=== PATIENT | male | born 1955 | race American Indian/Alaskan Native ===

== ENCOUNTER 2018-05-18 02:31 | Emergency (ER) | payer OTHER ==
[2018-05-18 03:43] LABS: Basophils # (Auto) 0.1 K/mm3 (0.0-0.1); Hematocrit 36.5 % (35.5-45.6); Hemoglobin 11.8 gm/dl (11.8-15.2); Lymphocytes % (Auto) 18.3 % (13.4-35.0); Mean Corpuscular HGB Conc 32 % (32-34); Mean Corpuscular Hemoglobin 28 pg (28-32); Mean Corpuscular Volume 86 fl (84-94); Monocytes # (Auto) 0.4 K/mm3 (0.0-0.8); Monocytes % (Auto) 7.4 % (0.0-7.3); Platelet Count 236 K/mm3 (140-440); Red Blood Count 4.23 M/mm3 (3.65-5.03); Red Cell Distribution Width 13.9 % (13.2-15.2)
[2018-05-18] MEDS ORDERED: AFRIN ONE (04:37)
[2018-05-18 04:57] VITALS: BP 110/82
[2018-05-18 05:06] LABS: BUN/Creatinine Ratio 40; Blood Urea Nitrogen 44 mg/dL (9-20); Calcium 9.1 mg/dL (8.4-10.2); Hemolysis Index 11
[2018-05-18] MEDS ORDERED: AFRIN NS ONE (06:04)
--- NOTE | 2018-05-18 06:18 | Emergency Department Report ---
ED ENT HPI - General Chief complaint: Nosebleed Stated complaint: NOSE BLEED Time Seen by Provider: 05/18/18 06:17 Source: patient Mode of arrival: Ambulatory Limitations: No Limitations - History of Present Illness Initial comments: Patient c/o left sided nose bleed which started yesterday on and off. He denies any nose trauma. MD complaint: epistaxis -: Sudden, days(s) (1) Location: nose Severity: moderate Severity scale (0 -10): 4 Consistency: intermittent Improves with: pressure, other medication (Afrin nasal spray) Worsens with: none - Related Data Allergies Allergy/AdvReac Type Severity Reaction Status Date / Time No Known Allergies Allergy Verified 05/18/18 04:36 ED Dental HPI - General Chief complaint: Nosebleed Stated complaint: NOSE BLEED Time Seen by Provider: 05/18/18 06:17 Source: patient Mode of arrival: Ambulatory Limitations: No Limitations - Related Data Allergies Allergy/AdvReac Type Severity Reaction Status Date / Time No Known Allergies Allergy Verified 05/18/18 04:36 ED Review of Systems ROS: Stated complaint: NOSE BLEED Other details as noted in HPI Comment: All other systems reviewed and negative Constitutional: denies: chills, fever Eyes: denies: eye pain ENT: epistaxis Respiratory: no symptoms reported Cardiovascular: denies: chest pain, palpitations, dyspnea on exertion Endocrine: no symptoms reported Gastrointestinal: denies: abdominal pain, nausea, vomiting, diarrhea Genitourinary: denies: urgency, dysuria Musculoskeletal: denies: back pain, joint swelling Skin: denies: rash, lesions Neurological: denies: headache, weakness, numbness, paresthesias Psychiatric: denies: anxiety, depression Hematological/Lymphatic: denies: easy bleeding, easy bruising ED Past Medical Hx - Past Medical History Hx Asthma: Yes - Surgical History Past Surgical History?: No - Social History Smoking Status: Current Every Day Smoker Substance Use Type: None ED Physical Exam - General Limitations: No Limitations General appearance: alert, in no apparent distress - Head Head exam: Present: atraumatic, normocephalic, normal inspection - Eye Eye exam: Present: normal appearance, PERRL, EOMI Pupils: Present: normal accommodation - ENT ENT exam: Present: normal orophraynx, mucous membranes moist, other (Left nostril oozing bright red blood.) - Neck Neck exam: Present: normal inspection, full ROM. Absent: tenderness - Respiratory Respiratory exam: Present: normal lung sounds bilaterally. Absent: respiratory distress, wheezes, rales, rhonchi, stridor - Cardiovascular Cardiovascular Exam: Present: regular rate, normal rhythm, normal heart sounds - GI/Abdominal GI/Abdominal exam: Present: soft, normal bowel sounds. Absent: distended, tenderness, guarding, rebound, rigid - Extremities Exam Extremities exam: Present: normal inspection, full ROM, normal capillary refill. Absent: tenderness - Back Exam Back exam: Present: normal inspection, full ROM. Absent: tenderness - Neurological Exam Neurological exam: Present: alert, oriented X3, CN II-XII intact - Psychiatric Psychiatric exam: Present: normal affect, normal mood - Skin Skin exam: Present: warm, dry, intact, normal color. Absent: rash ED Course Vital Signs 05/18/18 05/18/18 03:21 04:56 Temperature 98.4 F Pulse Rate 120 H 94 H Respiratory 22 16 Rate Blood Pressure 137/96 Blood Pressure 110/82 [Left] O2 Sat by Pulse 100 96 Oximetry - Reevaluation(s) Reevaluation #1: 05/18/18 08:00 Patient does not want to stay in the ED anymore, he wants to be discharged because his ride is waiting for him outside to taking to [facility]. He said he is going to [place] immediately for further medical evaluation and consultation with an ENT surgeon. I appreciated the patient to stay to get his IV fluid and more evaluation but he refused saying if I done discharge him, he will leave AGAINST MEDICAL ADVICE. There is no ENT surgeon personal protection specialist today at [facility]. - Procedure Description Procedures done: Patient left nostril was sprayed with Afrin nasal spray. Afterwards, left nostril was packed with a Rhino Rocket. Bleeding was immediately controlled. No complication. Patient tolerated the procedure well. ED Medical Decision Making - Lab Data Result diagrams: 05/18/18 03:31 05/18/18 03:31 - Medical Decision Making Epistaxis. Critical care attestation.: If time is entered above; I have spent that time in minutes in the direct care of this critically ill patient, excluding procedure time. ED Disposition Clinical Impression: Epistaxis, Mild dehydration Disposition: DC-01 TO HOME OR SELFCARE Is pt being admited?: No Does the pt Need Aspirin: No Condition: Stable Instructions: Epistaxis (ED) Additional Instructions: Please follow up with an ENT surgeon Dr Goff today for further evaluation and management. Return to the emergency room if your condition worsens. Referrals: PRIMARY CARE, [Primary Care Provider] - 3-5 Days ANGIE GOFF MD [Staff Physician] - 3-5 Days Time of Disposition: 08:12
[2018-05-18] MEDS ORDERED: NACL 0.9% 1000 ML 1,000 ML IV ONE (06:49)
[2018-05-18 07:12] LABS: INR 0.95 (0.87-1.13)
[2018-05-18 07:13] LABS: Partial Thromboplastin Time 25.8 Sec. (24.2-36.6)
[2018-05-18 07:16] LABS: Alanine Aminotransferase 27 units/L (7-56)
[2018-05-18 07:31] LABS: Bilirubin,Direct < 0.2 mg/dL (0-0.2)
== END 2018-05-18 08:20 | disposition home or self-care (01) ==
LOC: ED 02:31
DX: R04.0 Epistaxis (principal); E86.0 Dehydration; J45.909 Unspecified asthma, uncomplicated; F17.200 Nicotine dependence, unspecified, uncomplicated
CPT/HCPCS: 36415; 80048; 80074; 85025; 85610; 85730

== ENCOUNTER 2019-08-24 22:32 | Inpatient (IN) | payer OTHER ==
[2019-08-24] MEDS ORDERED: SODIUM CHLORIDE 0.9% 1000 ML 1,000 ML IV ONE (22:53)
[2019-08-24] MEDS ORDERED: MINERAL OIL/PETROLATUM, WHITE OPHTH OINT 3.5 GM OU PRN (22:54)
[2019-08-24] MEDS ORDERED: MIDAZOLAM 2 MG/2 ML INJ IV PRN (22:54)
[2019-08-24] MEDS ORDERED: LIP THERAPY VASELINE TP PRN (22:54)
[2019-08-24] MEDS ORDERED: LORazepam 100 MG in SODIUM CHLORIDE 0.9% 50 ML, EMPTY BAG 0 ML IV SCH (23:00)
--- NOTE | 2019-08-24 23:39 | XRay Report ---
CHEST 1 VIEW INDICATION: ETT placement COMPARISON: None FINDINGS: Support devices: Endotracheal tube is in position, with its tip 7 cm above the matthew. Heart: Normal Lungs/Pleura: Lungs are hyperinflated, consistent with COPD. No acute superimposed disease. IMPRESSION: 1. Endotracheal tube in position. 2. COPD but no definite superimposed acute disease. Signer Name: Wilbur Phipps MD Signed: 08/24/2019 11:35 PM Workstation Name: [id number]
[2019-08-24 23:48] LABS: Hemoglobin 12.2 gm/dl (11.8-15.2); Mean Corpuscular HGB Conc 31 % (32-34); Mean Corpuscular Volume 90 fl (84-94); Platelet Count 226 K/mm3 (140-440); Red Blood Count 4.32 M/mm3 (3.65-5.03); Red Cell Distribution Width 14.9 % (13.2-15.2)
[2019-08-25 00:03] LABS: INR 1.08 (0.87-1.13)
[2019-08-25 00:29] LABS: Albumin 3.6 g/dL (3.9-5); Calcium 8.4 mg/dL (8.4-10.2)
[2019-08-25 00:46] LABS: Bacteria,Urine 1+ /HPF (Negative); Bilirubin,Urine NEG (Negative); Blood,Urine SM (Negative); Color,Urine Yellow (Yellow); Protein,Urine <15 mg/dL mg/dL (Negative); Urobilinogen,Urine < 2.0 mg/dL (<2.0); WBC,Urine < 1.0 /HPF (0.0-6.0)
[2019-08-25 00:53] LABS: Amphetamine Screen,Urine PRESUMPTIVE NEGATIVE; Benzodiazepines Screen,Urine PRESUMPTIVE NEGATIVE; Cannabinoid Screen,Urine PRESUMPTIVE NEGATIVE; Methadone Screen,Urine PRESUMPTIVE NEGATIVE; Opiate Screen,Urine PRESUMPTIVE NEGATIVE
--- NOTE | 2019-08-25 00:55 | Cat Scan Report ---
CT head/brain wo con INDICATION: Altered mental status. TECHNIQUE: All CT scans at this location are performed using CT dose reduction for ALARA by means of automated e xposure control. COMPARISON: None available. FINDINGS: Visualized paranasal and mastoid sinuses are clear. Ventricles are symmetrical and normal in size. Mild cortical involution. No mass, hemorrhage or other acute abnormality. IMPRESSION: 1. No acute abnormality. Signer Name: Wilbur Phipps MD Signed: 08/25/2019 12:50 AM Workstation Name: [id number]
[2019-08-25 01:08] LABS: Cocaine Screen,Urine PRESUMPTIVE POSITIVE
[2019-08-25] MEDS ORDERED: levETIRAcetam 1000 MG/NS 0.75% 1,000 MG/100 ML BAG IV ONE ×2 (01:20→03:51)
--- NOTE | 2019-08-25 01:44 | Emergency Department Report ---
HPI - General Chief Complaint: Dyspnea/Respdistress Time Seen by Provider: 08/24/19 22:53 - HPI HPI: 63-year-old Afro-[place] male presents to the emergency department via EMS after he was found down at his home unresponsive. Patient was given some Narcan did not appear to have any effect on him. EMS felt that he was wheezing with some signs of shortness of breath so he was given a DuoNeb and Solu-Medrol. The patient arrives to the emergency department with his eyes open but otherwise moaning and unresponsive. He does appear to have some respiratory distress with tachypnea and shallow breathing. This patient is unknown to me but has been to this emergency department one time previously, about one year ago, for a nosebleed. ED Past Medical Hx - Past Medical History Previous Medical History?: Yes Hx Asthma: Yes - Surgical History Past Surgical History?: No - Social History Smoking Status: Current Every Day Smoker Substance Use Type: None ED Review of Systems ROS: Stated complaint: CARLOS Other details as noted in HPI Comment: Unobtainable due to pts medical conditions Physical Exam - Physical Exam Vital Signs: Vital Signs 08/24/19 22:47 Pulse Rate 94 H Blood Pressure 129/110 O2 Sat by Pulse 100 Oximetry Physical Exam: GENERAL: Patient is ill-appearing and unresponsive. HEENT: Normocephalic. Atraumatic. Patient has moist mucous membranes. EYES: Pupils are constricted but reactive to light.. NECK: Supple. Trachea is midline CHEST/LUNGS: Slight coarse breath sounds. There is tachypnea with accessory muscle use. There is respiratory distress noted. HEART/CARDIOVASCULAR: Regular. There is mild tachycardia. ABDOMEN: Abdomen is soft. Patient has normal bowel sounds. There is no abdominal distention. SKIN: Skin is warm and dry. NEURO: The patient's eyes are open but otherwise he is unresponsive. He is moaning and does not appear to be responding to painful stimuli. MUSCULOSKELETAL: There is no obvious deformity. ED Course Vital Signs 08/24/19 22:47 Pulse Rate 94 H Blood Pressure 129/110 O2 Sat by Pulse 100 Oximetry - Intubation Time Out Performed: No Sedative: Etomidate Mg Given: 20 Paralytic: Rocuronium Mg Given: 80 Laryngoscope: other (Glidescope) Size: 4 ET Tube Size: 7.5 Tube Secured Depth (cm): 24 Tube Secured Location: lips Tube Placement Confirmation: visualized tube passing t, equal breath sounds bilat, confirmation by capnometr Patient Tolerated Procedure: well Intubation Complications: none ED Medical Decision Making - Lab Data Result diagrams: 08/24/19 23:30 08/24/19 23:30 - EKG Data -: EKG Interpreted by Me EKG shows normal: sinus rhythm, axis, intervals (prolonged QTC), QRS complexes (Q waves to the anterior leads), ST-T waves Rate: normal - EKG Data When compared to previous EKG there are: previous EKG unavailable Interpretation: other (sinus rhythm, rate of 85 bpm, prolonged QTc interval, Q waves to the anterior lead) - Radiology Data Radiology results: report reviewed, image reviewed interpreted by me: Chest x-ray shows appropriate placement of ET tube. No pneumonia, pneumothorax, pleural effusions, focal consolidation. CT head/brain wo con INDICATION: Altered mental status. TECHNIQUE: All CT scans at this location are performed using CT dose reduction for ALARA by means of automated exposure control. COMPARISON: None available. FINDINGS: Visualized paranasal and mastoid sinuses are clear. Ventricles are symmetrical and normal in size. Mild cortical involution. No mass, hemorrhage or other acute abnormality. IMPRESSION: 1. No acute abnormality. - Medical Decision Making This patient presents with altered mental status and respiratory distress after being found down at home by a neighbor. Last known well time was sometime this morning so it is unknown how long the patient has been down and unresponsive. He did not appear to have any response to the Narcan given by EMS but did become slightly more responsive in route. By the time he got to us he has his eyes open but he is otherwise still unresponsive, nonverbal, not following commands. He had tachypnea, accessory muscle use and for this reason he was intubated. CT of the head does not show any bleed, shift, mass, ischemia, or any other acute process. Chest x-ray is not showing any acute process and shows appropriate placement of the ET tube. Labs show mild renal insufficiency, an ABG that shows some metabolic acidosis, blood alcohol level of 0.18, recent cocaine use. The patient had some transient hypotension upon return from the CT scan so was given a few liters of IV fluid resuscitation. He has some abnormal twitching or convulsions occasionally seen so the patient was loaded with some Keppra as well. He will be admitted to the hospital for further evaluation and treatment was for admission by the hospitalist, Dr. Gee. - Differential Diagnosis substance abuse, seizures, CVA, MA Critical Care Time: Yes Critical care time in (mins) excluding proc time.: 35 Critical care attestation.: If time is entered above; I have spent that time in minutes in the direct care of this critically ill patient, excluding procedure time. Critical care time was spent on this patient during his initial evaluation, multiple re-evaluations, ordering and interpretation of labs and imaging, multiple discussions with the patient's family. Critical Care Time: 35 minutes ED Disposition Clinical Impression: Cocaine use, Mild renal insufficiency Acute respiratory failure Qualifiers: Respiratory failure complication: unspecified whether with hypoxia or hypercapnia Qualified Code(s): J96.00 - Acute respiratory failure, unspecified whether with hypoxia or hypercapnia Altered mental status Qualifiers: Altered mental status type: unspecified Qualified Code(s): R41.82 - Altered mental status, unspecified Alcohol intoxication Qualifiers: Complication of substance-induced condition: with unspecified complication Qualified Code(s): F10.929 - Alcohol use, unspecified with intoxication, unspecified Disposition: DC-09 OP ADMIT IP TO THIS HOSP Is pt being admited?: Yes Condition: Serious Time of Disposition: 01:54
[2019-08-25] MEDS: MIDAZOLAM 100 MG in SODIUM CHLORIDE 0.9% 80 ML IV SCH ×2 (02:00→11:10)
[2019-08-25] MEDS ORDERED: ONDANSETRON 4 MG/2 ML INJ IV PRN (02:29)
[2019-08-25] MEDS ORDERED: SODIUM CHLORIDE 0.9% 1000 ML 1,000 ML IV SCH (02:30)
--- NOTE | 2019-08-25 02:37 | History and Physical Report ---
History of Present Illness Date of examination: 08/25/19 Date of admission: 08/25/19 Chief complaint: Unresponsiveness History of present illness: 63-year-old male was brought into the emergency room today having been found unresponsive on the floor by a neighbor. It is unclear how long patient has been unresponsive most of the history was given by ID and stepdaughter who were by the bedside. Patient lives alone. There has been no history of seizure disorder. There has been no history of fever or chills, no nausea vomiting and no diarrhea. He was found to be in respiratory distress upon arrival in the emergency room and was subsequently intubated Work-up in the emergency room including chest x-ray and CT scan of the head were unremarkable. However patient was positive for cocaine on his urine drug screen and he was also found to be be metabolic acidosis. Patient currently intubated and sedated in the emergency room. Past History Past Medical History: COPD Social history: smoking (3-4 CIGARS DAILY), alcohol abuse (1/2 PINT DAILY) Family history: other (HEART DISEASE) Medications and Allergies Allergies Allergy/AdvReac Type Severity Reaction Status Date / Time No Known Allergies Allergy Verified 05/18/18 04:36 Active Meds: Active Medications Hydrophilic Ointment (Vaseline Lip Therapy) 1 applic TP Q2HR PRN PRN Reason: Dry Lips Sodium Chloride (Nacl 0.9% 1000 Ml) 1,000 mls @ 125 mls/hr IV ONCE ONE Stop: 08/25/19 06:52 Midazolam HCl 100 mg/ Sodium (Chloride) 100 mls @ 2 mls/hr IV TITR KRYS; Protocol Midazolam HCl (Versed) 2 mg IV Q10MIN PRN PRN Reason: Sedation Multi-Ingred Cream/Lotion/Oil/Oint (Artificial Tears Ophth Oint) 1 applic OU Q4HR PRN PRN Reason: Dry Eye(s) Review of Systems ROS unobtainable: due to mental status Exam - Constitutional Vitals: Temp Pulse Resp BP Pulse Ox 94 H 129/110 100 08/24/19 22:47 08/24/19 22:47 08/24/19 22:47 General appearance: Present: no acute distress, well-nourished - EENT Eyes: Present: PERRL, EOM intact ENT: hearing intact, clear oral mucosa, dentition normal - Neck Neck: Present: supple, normal ROM - Respiratory Respiratory: bilateral: CTA - Cardiovascular Rhythm: regular Heart Sounds: Present: S1 & S2 - Extremities Extremities: no ischemia, pulses intact, pulses symmetrical, No edema, Full ROM Peripheral Pulses: within normal limits - Abdominal General gastrointestinal: Present: soft, non-tender, non-distended - Integumentary Integumentary: Present: clear, warm, dry - Neurologic Neurologic: other (Currently intubated and sedated) Results - Labs CBC & Chem 7: 08/24/19 23:30 08/24/19 23:30 Labs: Abnormal lab results 08/24/19 08/24/19 08/24/19 Range/Units 23:30 23:30 23:30 MCHC 31 L (32-34) % POC ABG pH (7.35-7.45) POC ABG pCO2 (35-45) Chloride 108.4 H (98-107) mmol/L Carbon Dioxide 11 L (22-30) mmol/L Creatinine 1.6 H (0.8-1.5) mg/dL Glucose 146 H (75-100) mg/dL Ammonia (25-60) umol/L Albumin 3.6 L (3.9-5) g/dL Plasma/Serum Alcohol 0.18 H (0-0.07) % 08/25/19 08/25/19 Range/Units 00:20 00:22 MCHC (32-34) % POC ABG pH 7.093 L (7.35-7.45) POC ABG pCO2 46.6 H (35-45) Chloride (98-107) mmol/L Carbon Dioxide (22-30) mmol/L Creatinine (0.8-1.5) mg/dL Glucose (75-100) mg/dL Ammonia 113.0 H (25-60) umol/L Albumin (3.9-5) g/dL Plasma/Serum Alcohol (0-0.07) % Assessment and Plan - Patient Problems (1) Acute respiratory failure Current Visit: Yes Status: Acute Qualifiers: Respiratory failure complication: unspecified whether with hypoxia or hypercapnia Qualified Code(s): J96.00 - Acute respiratory failure, unspecified whether with hypoxia or hypercapnia Plan to address problem: Patient currently intubated and sedated. We will place a consult to auto bench mechanic for further evaluation and recommendation. (2) Altered mental status Current Visit: Yes Status: Acute Qualifiers: Altered mental status type: unspecified Qualified Code(s): R41.82 - Altered mental status, unspecified Plan to address problem: Etiology is unclear. However urine drug screen was positive for cocaine. Patient is also known to drink alcohol on a daily basis. (3) Alcohol intoxication Current Visit: Yes Status: Acute Qualifiers: Complication of substance-induced condition: with unspecified complication Qualified Code(s): F10.929 - Alcohol use, unspecified with intoxication, unspecified Plan to address problem: We will monitor for alcohol withdrawal symptoms. (4) Cocaine use Current Visit: Yes Status: Acute Plan to address problem: Patient was counseled on quitting illicit drug use prior to discharge (5) DVT prophylaxis Current Visit: Yes Status: Acute Plan to address problem: Patient placed on subcutaneous heparin. (6) Full code status Current Visit: Yes Status: Acute
[2019-08-25] MEDS ORDERED: HALOPERIDOL LACTATE 5 MG/1 ML INJ IV PRN (05:08)
[2019-08-25] MEDS ORDERED: LORazepam 2 MG/ML VIAL IV PRN ×3 (05:08)
[2019-08-25 05:34] LABS: Basophils % (Manual) 0 % (0.0-1.8); Total Cells Counted 100
[2019-08-25 05:35] LABS: Schistocytes Rare; Target Cells Rare
[2019-08-25 05:36] LABS: Platelet Estimate Consistent w Auto
[2019-08-25] MEDS ORDERED: PROPOFOL 1,000 MG/100 ML BOTTLE IV SCH (06:00)
[2019-08-25] MEDS ORDERED: PROPOFOL 1,000 MG/100 ML BOTTLE IV ONE ×3 (06:29→21:36)
--- NOTE | 2019-08-25 06:37 | XRay Report ---
CHEST 1 VIEW INDICATION: follow up respiratory failure COMPARISON: One day prior. FINDINGS: Support devices: Endotracheal tube appears to have been removed. Nasogastric tube position is unchang ed. Heart: Stable. Lungs/Pleura: No acute pulmonary or pleural findings. IMPRESSION: 1. No acute disease following endotracheal tube removal. Signer Name: Wilbur Phipps MD Signed: 08/25/2019 6:33 AM Workstation Name: [id number]
[2019-08-25] MEDS: HEPARIN 5,000 UNIT/1 ML VIAL SUB-Q SCH ×2 (07:22→14:16)
[2019-08-25] MEDS ORDERED: HEPARIN 5,000 UNIT/1 ML VIAL ONE ×2 (07:27→14:20)
[2019-08-25] MEDS ORDERED: LACTATED RINGERS 1,000 ML IV ONE (14:48)
[2019-08-25] MEDS ORDERED: LACTATED RINGERS 1,000 ML ONE (15:44)
--- NOTE | 2019-08-25 15:59 | Consultation ---
History of Present Illness Consult date: 08/25/19 Requesting physician: NOREEN IZQUIERDO History of present illness: 63-year-old male was brought into the emergency room today having been found unresponsive on the floor. It is unclear how long patient has been unresponsive most of the history was given by sister and son who were by the bedside. Patient lives alone but a friend last spoke to him yesterday at about 10pm. She apparently called later and he did not respond. She went over to his home and found him kneeling down with his face forwards, a marijuana stub and 1/2 a bottle of alcohol beside him. She had to break into the home. EMS was called. There has been no history of seizure disorder. There has been no history of fever or chills, no nausea vomiting and no diarrhea. He was found to be in respiratory distress upon arrival in the emergency room and was subsequently intubated Work-up in the emergency room including chest x-ray and CT scan of the head were unremarkable. However patient was positive for cocaine on his urine drug screen and he was also found to be be metabolic acidosis. Patient currently intubated and sedated in the emergency room. I have been consulted fro critical care management. Patient was seen and examined. History as obtained from his family. He is tachypnic, diaphoretic on MVS Past History Past Medical History: COPD Social history: smoking (3-4 CIGARS DAILY), alcohol abuse (1/2 PINT DAILY) Family history: other (HEART DISEASE) Medications and Allergies Allergies Allergy/AdvReac Type Severity Reaction Status Date / Time No Known Allergies Allergy Verified 05/18/18 04:36 Active Meds: Active Medications Haloperidol Lactate (Haldol) 5 mg IV Q1HR PRN PRN Reason: Unrespon. to mult. doses BZD's Heparin Sodium (Porcine) (Heparin) 5,000 unit SUB-Q Q8HR KRYS Last Admin: 08/25/19 14:16 Dose: 5,000 unit Documented by: Hydrophilic Ointment (Vaseline Lip Therapy) 1 applic TP Q2HR PRN PRN Reason: Dry Lips Midazolam HCl 100 mg/ Sodium (Chloride) 100 mls @ 2 mls/hr IV TITR KRYS; Protocol Last Titration: 08/25/19 11:50 Dose: 5 mg/hr, 5 mls/hr Documented by: Sodium Chloride (Nacl 0.9% 1000 Ml) 1,000 mls @ 125 mls/hr IV DIRECT KRYS Last Admin: 08/25/19 05:30 Dose: 125 mls/hr Documented by: Propofol (Diprivan 10 Mg/Ml) 1,000 mg in 100 mls @ 2.341 mls/hr IV TITR KRYS; Protocol Last Titration: 08/25/19 13:05 Dose: 61.95 mcg/kg/min, 29 mls/hr Documented by: Lorazepam (Ativan) 2 mg IV Q1HR PRN PRN Reason: CIWA-Ar 8-15 Lorazepam (Ativan) 4 mg IV Q1HR PRN PRN Reason: CIWA-Ar 16-25 Lorazepam (Ativan) 4 mg IV Q15MIN PRN PRN Reason: CIWA-Ar >25 Midazolam HCl (Versed) 2 mg IV Q10MIN PRN PRN Reason: Sedation Multi-Ingred Cream/Lotion/Oil/Oint (Artificial Tears Ophth Oint) 1 applic OU Q4HR PRN PRN Reason: Dry Eye(s) Ondansetron HCl (Zofran) 4 mg IV Q8H PRN PRN Reason: Nausea And Vomiting Sodium Chloride (Sodium Chloride Flush Syringe 10 Ml) 10 ml IV BID KRYS Last Admin: 08/25/19 11:49 Dose: 10 ml Documented by: Sodium Chloride (Sodium Chloride Flush Syringe 10 Ml) 10 ml IV PRN PRN PRN Reason: LINE FLUSH Review of Systems ROS unobtainable: due to endotracheal tube, due to mental status Physical Examination Vital signs: Vital Signs Pulse Resp Pulse Ox 81 40 H 94 08/24/19 22:40 08/24/19 22:40 08/24/19 22:40 Reviewed Diaphoretic - EENT Eyes: Present: PERRL, EOM intact ENT: Orally intubated, ETT at 23cm at the lip Tachypnic, - Neck Neck: Present: supple, normal ROM - Respiratory Respiratory: bilateral: CTA - Cardiovascular Rhythm: regular, tachycardia Heart Sounds: Present: S1 & S2 - Extremities Extremities: no ischemia, pulses intact, pulses symmetrical, No edema, Mottled lower extremity Peripheral Pulses: within normal limits - Abdominal General gastrointestinal: Present: soft, non-tender, non-distended - Integumentary Integumentary: Present: clear, warm, dry - Neurologic Neurologic: other (Currently intubated and sedated) Results - Laboratory Findings CBC and BMP: 08/24/19 23:30 08/24/19 23:30 ABG POC ABG pH 7.240 (7.35-7.45) L 08/25/19 15:01 POC ABG pCO2 38.7 (35-45) 08/25/19 15:01 POC ABG pO2 100 (80-105) 08/25/19 15:01 POC ABG HCO3 16.6 (22-26 mml/L) 08/25/19 15:01 POC ABG Total CO2 18 (23-27mmol/L) 08/25/19 15:01 POC ABG O2 Sat 97 08/25/19 15:01 PT/INR, D-dimer PT 14.1 Sec. (12.2-14.9) 08/24/19 23:30 INR 1.08 (0.87-1.13) 08/24/19 23:30 Abnormal lab findings: Abnormal Labs 08/24/19 08/24/19 08/24/19 23:30 23:30 23:30 MCHC 31 L POC ABG pH POC ABG pCO2 POC ABG pO2 Chloride 108.4 H Carbon Dioxide 11 L Creatinine 1.6 H Glucose 146 H Ammonia Albumin 3.6 L Plasma/Serum Alcohol 0.18 H 08/25/19 08/25/19 08/25/19 00:20 00:22 06:07 MCHC POC ABG pH 7.093 L 7.209 L POC ABG pCO2 46.6 H POC ABG pO2 213 H Chloride Carbon Dioxide Creatinine Glucose Ammonia 113.0 H Albumin Plasma/Serum Alcohol 08/25/19 15:01 MCHC POC ABG pH 7.240 L POC ABG pCO2 POC ABG pO2 Chloride Carbon Dioxide Creatinine Glucose Ammonia Albumin Plasma/Serum Alcohol - Diagnostic Findings Chest x-ray: image reviewed (ETT in good position, hyperinflated lung lynn with flattening of the diaphragms) Assessment and Plan Acute Hypoxemic Respiratory failure on MVS Acute toxic-metabolic encephalaopthy Metabolic acidosis Substance abuse disorder +UDS, cocaine h/o COPD h/o Anxiety disorder ANDREA - Get ABG, CBC, CMP -Wean supplemental oxygen for target O2 sat's > 90% - Daily SAT and SBT assessment as tolerated - VAP bundle addressed - Lung protective strategies - Bronchodilators with pulmonary hygiene per RT - Accuchecks with glycemic control per SSI (While critically ill target blood glucose of 140-180 mg/dL; avoid hypoglycemia) - Sedation for target RASS 0 to -1 - Propopfol and midazolam - prn analgesia per CPOT score - Maintenance of sleep-wake cycle, avoid delirium - Enteral nutritional support , place small bowel feeding tube -Aspiration precautions, HOB >40 -RD consult - G.I. & VTE prophylaxis - Mobility protocol and off loading for pressure ulcer prevention -Ordriguez catheter for accurate intake and output measurement in this critically ill patient -Avoid nephrotoxins, adjust all medications for GFR and CrCL -Lactulose per tube once NGT placement is confirmed -Transthoracic echocardiography to evaluate LVEF -Bronchodilators per protocol -Chronic home medications -CIWA protocol -Empiric bicarbonate infusion, will adjust therapy based on follow up ABG and BMP CONDITION: CRITICAL PROGNOSIS: GUARDED CODE STATUS: FULL CODE Updated family at the bedside. Discussed care plan and answered all their questions The high probability of a clinically significant, sudden or life-threatening deterioration of the [cardiac & respiratory] system(s) required my full and direct attention, intervention and personal management. The aggregate critical care time was [75] minutes without overlap. Time includes spent on; [x] Data Review and interpretation [x] Patient assessment and monitoring of vital signs [x] Documentation [x] Medication orders and management
--- NOTE | 2019-08-25 17:13 | Event Note ---
Date: 08/25/19 PATIENT SEEN AND EVALUATED UPDATED FAMILY ABOUT DIAGNOSIS AND PROGNOSIS ENCEPHALOPATHY SEC TO etoh AND COCAINE RESP FAILURE
[2019-08-25 19:39] LABS: Mean Corpuscular HGB Conc 31 % (32-34); Mean Corpuscular Volume 91 fl (84-94); Platelet Count 140 K/mm3 (140-440); Red Blood Count 4.54 M/mm3 (3.65-5.03); Red Cell Distribution Width 15.4 % (13.2-15.2)
[2019-08-25 19:40] LABS: Hematocrit 41.2 % (35.5-45.6); Hemoglobin 12.6 gm/dl (11.8-15.2)
[2019-08-25] MEDS ORDERED: SODIUM BICARBONATE 75 MEQ in WATER FOR INJECTION (PF) 1,000 ML IV SCH (20:00)
[2019-08-25] MEDS ORDERED: IPRATROPIUM/ALBUTEROL SULFATE 3 ML AMPUL.NEB IH SCH (20:00)
[2019-08-25 20:10] LABS: BUN/Creatinine Ratio 7; Blood Urea Nitrogen 26 mg/dL (9-20); Calcium 6.9 mg/dL (8.4-10.2); Hemolysis Index 104
[2019-08-25 20:26] LABS: Alanine Aminotransferase 177 units/L (7-56)
[2019-08-25 21:34] LABS: Band Neutrophils # (Manual) 0.2 K/mm3; Basophils % (Manual) 0 % (0.0-1.8); Eosinophils % (Manual) 0 % (0.0-4.3); Total Cells Counted 100
[2019-08-25 21:36] LABS: Anisocytosis 1+; Hypochromasia 1+; Platelet Estimate Consistent w Auto; Poikilocytosis 1+
[2019-08-25 22:53] LABS: Calcium 7.2 mg/dL (8.4-10.2)
[2019-08-25] MEDS ORDERED: SODIUM BICARBONATE 150 MEQ in WATER FOR INJECTION (PF) 1,000 ML IV SCH (22:56)
[2019-08-25] MEDS ORDERED: CALCIUM GLUCONATE 1,000 MG in SODIUM CHLORIDE 0.9% 100 ML IV ONE (23:00)
[2019-08-25] MEDS ORDERED: INSULIN REGULAR, HUMAN 100 UNITS/1 ML ONE (23:11)
[2019-08-25] MEDS ORDERED: DEXTROSE 50% IN WATER (25GM) 50 ML SYRINGE IV ONE ×3 (23:14→23:26)
[2019-08-25] MEDS ORDERED: SODIUM BICARB 8.4% 50 MEQ/50 ML SYRINGE IV ONE ×2 (23:16→23:26)
[2019-08-25] MEDS ORDERED: SODIUM CHLORIDE 0.9% 100 ML IV PRN (23:21)
[2019-08-25] MEDS ORDERED: INSULIN REGULAR, HUMAN 100 UNITS/1 ML IV ONE (23:25)
--- NOTE | 2019-08-25 23:31 | Progress Note ---
Subjective Date of service: 08/25/19 Interval history: Called by hospitalist regarding patient's severe hyperkalemia and acidosis. Pt will need emergent dialysis. Hospitalist to call vascular surgery for STAT vascath. STAT dialysis ordered. Patient also being given insulin/D50/Albuterol/Bicarb/Calcium gluconate/Kayxelate/bicarb. Change IVFs to bicarb drip. Vasquez León MD [phone] Objective - Vital Signs Vital signs: Vital Signs - 12hr 08/25/19 08/25/19 08/25/19 12:00 12:44 13:01 Pulse Rate 75 90 79 Respiratory 15 19 Rate Blood Pressure 172/89 172/88 172/89 Blood Pressure [Right] O2 Sat by Pulse 94 96 93 Oximetry 08/25/19 08/25/19 08/25/19 14:00 15:01 16:00 Pulse Rate 88 100 H 103 H Respiratory 23 21 20 Rate Blood Pressure 171/86 142/88 164/80 Blood Pressure [Right] O2 Sat by Pulse 98 84 Oximetry 08/25/19 08/25/19 08/25/19 17:01 17:21 18:00 Pulse Rate 107 H 92 H 96 H Respiratory 18 18 17 Rate Blood Pressure 164/80 154/70 Blood Pressure 164/80 [Right] O2 Sat by Pulse 94 Oximetry 08/25/19 08/25/19 08/25/19 18:22 19:01 20:00 Pulse Rate 92 H 96 H Respiratory 19 17 Rate Blood Pressure 154/70 154/70 Blood Pressure [Right] O2 Sat by Pulse 96 97 96 Oximetry 08/25/19 08/25/19 08/25/19 20:01 21:01 22:00 Pulse Rate 92 H 77 77 Respiratory 18 17 17 Rate Blood Pressure 90/56 90/56 81/47 Blood Pressure [Right] O2 Sat by Pulse 94 96 Oximetry 08/25/19 23:08 Pulse Rate 56 L Respiratory Rate Blood Pressure 76/43 Blood Pressure [Right] O2 Sat by Pulse 97 Oximetry - Lab 08/25/19 19:21 08/25/19 20:49 Most recent lab results Calcium 7.2 mg/dL (8.4-10.2) L 08/25/19 20:49 Medications & Allergies - Medications Allergies/Adverse Reactions: Allergies No Known Allergies Allergy (Verified 05/18/18 04:36) Home Medications: Home Medications Medication Instructions Recorded Confirmed Last Taken Type Unobtainable 08/25/19 08/25/19 Unknown History Active Medications: Generic Name Dose Route Start Last Admin Trade Name Freq PRN Reason Stop Dose Admin Albuterol/Ipratropium 1 ampul 08/25/19 20:00 Duoneb *Not For Prn Use* IH QIDRT KRYS Haloperidol Lactate 5 mg 08/25/19 05:08 Haldol IV Q1HR PRN Unrespon. to mult. doses BZD's Heparin Sodium (Porcine) 5,000 unit 08/25/19 06:00 08/25/19 14:16 Heparin SUB-Q 5,000 unit Q8HR KRYS Administration Hydrophilic Ointment 1 applic 08/24/19 22:54 Vaseline Lip Therapy TP Q2HR PRN Dry Lips Midazolam HCl 100 mg/ Sodium 100 mls @ 2 mls/hr 08/24/19 23:00 08/25/19 11:50 Chloride IV 5 mg/hr TITR KRYS 5 mls/hr Titration Protocol 2 MG/HR Sodium Chloride 1,000 mls @ 125 mls/hr 08/25/19 02:30 08/25/19 05:30 Nacl 0.9% 1000 Ml IV 125 mls/hr DIRECT KRYS Administration Propofol 1,000 mg in 100 mls @ 2.341 mls/hr 08/25/19 06:00 08/25/19 13:05 Diprivan 10 Mg/Ml IV 61.95 mcg/kg/min TITR KRYS 29 mls/hr Titration Protocol 5 MCG/KG/MIN Sodium Bicarbonate 150 meq/ 1,150 mls @ 100 mls/hr 08/25/19 22:56 Sterile Water IV DIRECT KRYS Sodium Chloride 100 mls @ 999 mls/hr 08/25/19 23:21 Nacl 0.9% IV GILBERTO PRN Hypotension Lorazepam 2 mg 08/25/19 05:08 Ativan IV Q1HR PRN CIWA-Ar 8-15 Lorazepam 4 mg 08/25/19 05:08 Ativan IV Q1HR PRN CIWA-Ar 16-25 Lorazepam 4 mg 08/25/19 05:08 Ativan IV Q15MIN PRN CIWA-Ar >25 Midazolam HCl 2 mg 08/24/19 22:54 Versed IV Q10MIN PRN Sedation Multi-Ingred Cream/Lotion/Oil/Oint 1 applic 08/24/19 22:54 Artificial Tears Ophth Oint OU Q4HR PRN Dry Eye(s) Ondansetron HCl 4 mg 08/25/19 02:29 Zofran IV Q8H PRN Nausea And Vomiting Sodium Chloride 10 ml 08/25/19 10:00 08/25/19 11:49 Sodium Chloride Flush Syringe 10 Ml IV 10 ml BID KRYS Administration Sodium Chloride 10 ml 08/25/19 02:29 Sodium Chloride Flush Syringe 10 Ml IV PRN PRN LINE FLUSH
[2019-08-25] MEDS ORDERED: SODIUM POLYSTYRENE 15 GM/60 ML ORAL LIQD PR ONE (23:32)
[2019-08-25] MEDS ORDERED: ALBUMIN HUMAN 25% (25 GM/100 ML) INJ IV SCH (23:45)
[2019-08-25 23:49] LABS: ABG Base Excess -12.8 mmol/L (-2.0-3.0); ABG HCO3 14.5 mmol/L (20.0-26.0); ABG Methemoglobin 0.6 % (0.0-1.5); ABG Oxygen Saturation 96.6 % (95.0-99.0); ABG PCO2 38.2 mm Hg; ABG PO2 88.6 mm Hg (80.0-90.0)
[2019-08-25 23:54] LABS: ABG PH 7.196 pH Units (7.350-7.450)
[2019-08-26] MEDS ORDERED: ALBUTEROL 2.5 MG/3 ML NEBU IH ONE ×5 (00:09→23:36)
[2019-08-26] MEDS ORDERED: SODIUM POLYSTYRENE 15 GM/60 ML ORAL LIQD ONE (00:29)
[2019-08-26 00:46] LABS: Hepatitis B Surface Antigen Non-Reactive (Negative); Hepatitis C Virus Antibody Non-Reactive (NonReactive)
--- NOTE | 2019-08-26 01:04 | XRay Report ---
ABDOMEN SUPINE INDICATION / CLINICAL INFORMATION: Confirm NGT placement. COMPARISON: None FINDINGS: NG tube projected over the proximal to mid stomach. All sideholes appear to be below the GE junction. Signer Name: Wilbur Phipps MD Signed: 08/26/2019 1:00 AM Workstation Name: [id number]
--- NOTE | 2019-08-26 01:16 | Post Operative Note ---
Date of procedure: 08/26/19 Pre-op diagnosis: ARF Post-op diagnosis: same Findings: In order to avoid wire manipulation of the right side of the heart, I decided to place a femoral vascath and avoid jugular placement (K 9+) Procedure: Right femoral trialysis placement Anesthesia: local Surgeon: MATHEUS GOMEZ Estimated blood loss: minimal Condition: stable Disposition: no change
--- NOTE | 2019-08-26 01:17 | Operative Report ---
Operative Report Operative Report: EXAM: 1. Ultrasound-guided puncture of the right common femoral vein 2. Placement of a right common femoral vein nontunneled noncuffed hemodialysis catheter. DATE: 08/26/19 INDICATION: Acute renal failure with severe hyperkalemia, mild hypotension, intubated. MEDICATIONS: Local anesthetic (1% lidocaine). DEVICES: Triple lumen nontunneled noncuffed hemodialysis catheter COMPOSITION SIDING WORKER: MATHEUS GOMEZ MD CONTRAST: None PROCEDURE: The risks, benefits, and alternatives were discussed and informed consent was obtained. The patient's right common femoral vein was assessed with ultrasound at bedside and determined to be patent prior to procedure. The patient was prepped and draped in a sterile fashion. The puncture site was anesthetized. Under sonographic guidance, the right common femoral vein was punctured with a 18-gauge micropuncture needle and a 0.035 inch wire was advanced through the needle. Over the 0.035 inch wire, dilatation was performed. The catheter was advanced over the wire. 2-0 silk suture was used to secure the catheter. The central catheter lumen was charged with saline. The peripheral catheter lumens were charged with 1000 units of heparin per mL of space. Biopatch and tegaderm were applied. Sterile dressing applied. FINDINGS: 1. Ultrasound documented patency of the right common femoral vein. The vessel was accessed under direct ultrasound guidance. IMPRESSION: 1. Successful ultrasound guided bedside placement of a right common femoral vei n nontunneled noncuffed triple lumen hemodialysis catheter.
--- NOTE | 2019-08-26 01:52 | Event Note ---
Date: 08/26/19 Patient is a 63-year-old male admitted about 24 hours ago for respiratory distress and a change in mental status. He has been on admission on ICU hold in the emergency room and currently intubated. Attention was called by the nurse taking care of patient about patient's lab namely elevated potassium, elevated BUN and creatinine and decreased urine output. Labs were reviewed by me and insulin nuclear and glucose, calcium gluconate, sodium bicarbonate, albuterol nebulizing treatment, Kayexalate were ordered for the elevated potassium. We also check EKG. Staffing Coordinator on-call Dr. Acosta was immediately notified and he has recommended for immediate dialysis. Vascular surgeon community liaison officer was also immediately notified for Vas-Cath placement for dialysis. We will follow-up on lab and patient's condition. Condition discussed with family members were by the bedside.
[2019-08-26] MEDS ORDERED: NORepinephrine/NS 4 MG-250 ML 4 MG/250 ML BAG IV ONE ×2 (02:06→02:33)
[2019-08-26] MEDS ORDERED: NORepinephrine/NS 4 MG-250 ML 4 MG/250 ML BAG IV SCH (03:00)
[2019-08-26] MEDS ORDERED: DOPamine/D5W 800 MG/250 ML 0 MG/0 ML BAG IV ONE (05:19)
[2019-08-26] MEDS ORDERED: ETOMIDATE 20 MG/10 ML INJ IV ONE (05:19)
[2019-08-26] MEDS ORDERED: ROCURONIUM 50 MG/5 ML INJ IV ONE (05:19)
[2019-08-26] MEDS ORDERED: HEPARIN 10,000 UNIT/1 ML VIAL ONE (05:19)
[2019-08-26] MEDS ORDERED: ATROPINE 0.1% (1 MG/10 ML) CARDIAC SYRINGE ONE (05:25)
[2019-08-26] MEDS ORDERED: SODIUM BICARB 8.4% 50 MEQ/50 ML SYRINGE IV ONE (05:25)
[2019-08-26] MEDS ORDERED: EPINEPHrine 1:10,000 1 MG/10 ML SYRINGE ONE (05:25)
--- NOTE | 2019-08-26 05:41 | Event Note ---
Date: 08/26/19 Heart or nursing staff called me to the room to report that the patient on longer had a pulse. CODE BLUE was initiated. The patient just finished a dialysis washing. Patient is Only fed. Patient was found to be asystole on my arrival. Patient has had a history of an elevated potassium into the 9 range. Patient given bicarbonate and calcium chloride and CPR was initiated. 2 rounds of epinephrine were given. Patient did not regain spontaneous heartbeat. Hospitalist Dr. Wilkerson was also present and pronounced the patient at 0 532.
[2019-08-26 08:00] VITALS: BP 88/49
[2019-08-26] MEDS ORDERED: DOPamine/D5W 800 MG/250 ML 800 MG/250 ML BAG IV SCH (08:00)
== END 2019-08-26 13:59 | DRG 917 ==
LOC: ED 22:32 → CC1 08-25 03:48
PROVIDERS: ADMIT Internal Medicine Geriatric Medicine; ATTEND Internal Medicine
PROC: 5A1945Z Respiratory Ventilation, 24-96 Consecutive Hours (ICD-10-PCS; principal; 2019-08-24)
PROC: 0BH17EZ Insertion of Endotracheal Airway into Trachea, Via Natural or Artificial Opening (ICD-10-PCS; 2019-08-24)
PROC: 4A033R1 Measurement of Arterial Saturation, Peripheral, Percutaneous Approach (ICD-10-PCS; 2019-08-25)
PROC: 5A12012 Performance of Cardiac Output, Single, Manual (ICD-10-PCS; 2019-08-26)
PROC: 06HY33Z Insertion of Infusion Device into Lower Vein, Percutaneous Approach (ICD-10-PCS; 2019-08-26)
PROC: B54BZZA Ultrasonography of Right Lower Extremity Veins, Guidance (ICD-10-PCS; 2019-08-26)
PROC: 5A1D70Z Performance of Urinary Filtration, Intermittent, Less than 6 Hours Per Day (ICD-10-PCS; 2019-08-26)
DX: T40.5X1A Poisoning by cocaine, accidental (unintentional), initial encounter (principal); J96.01 Acute respiratory failure with hypoxia; G92 Toxic encephalopathy; N17.9 Acute kidney failure, unspecified; J45.909 Unspecified asthma, uncomplicated; F17.210 Nicotine dependence, cigarettes, uncomplicated; F17.200 Nicotine dependence, unspecified, uncomplicated; Z60.2 Problems related to living alone; F14.10 Cocaine abuse, uncomplicated; F41.9 Anxiety disorder, unspecified; F10.129 Alcohol abuse with intoxication, unspecified; Y90.9 Presence of alcohol in blood, level not specified; Z82.49 Family history of ischemic heart disease and other diseases of the circulatory system; Z71.51 Drug abuse counseling and surveillance of drug abuser; Y92.098 Other place in other non-institutional residence as the place of occurrence of the external cause
CPT/HCPCS: 31500; 36415; 36600; 70450; 71045; 74018; 80048; 80053; 80074; 80307; 80320; 81001; 82140; 82550; 82803; 82962; 84443; 84484; 85007; 85025; 85610; 87040; 87205; 93005; 93010; 94002; 94640; 96374; G0378; G0480; J0171; J0461; J0610; J1265; J1644; J1815; J1953; J2250; J2704; J7030; J7120